=== PATIENT | female | born 1945 | race Hispanic/Latino ===

== ENCOUNTER → 2025-06-26 | Outpatient (CLI) | payer OTHER ==
[2025-06-26] MEDS: REGADENOSON 0.4 MG/5 ML PF SYG IVP ONE (10:59)
--- NOTE | 2025-06-26 14:46 | HMCSR ---
APPROVED REPORT Height: 4 ft 8in Weight: 168 lbs TEST INDICATIONS CAD The imaging protocol used to acquire images was Rest Tc-99m/stress Tc-99m 1 day Consent: The procedure was explained and understood by the patient. Informerd consent was witnessed Linh Reynolds RN First, low dose rest was performed then high dose stress. RESTING DATA: The resting ekg shows: NSR Rest SPECT myocardial perfusion imaging was performed in supine position minutes following the intra venous injection of mCi of Tc-99 Sestamibi. Time of rest injection: 09:12: Date: 06/26/2025 PHARMACOLOGIC STRESS: Pharmacologic stress test was performed by injecting regadenoson 0.4 mg IV push followed by the intra venous injection of mCi of Tc-99 Sestamibi. Time of stress injection: 10:55: Date: 06/26/2025 Heart Rate at time of stress injection: 74 bpm. Gated Stress SPECT was performed 60 minutes after stress injection. The images were gated to evaluate regional wall motion and calculate left ventricular ejection fracti on. STRESS DETAILS Reason for Termination: Infusion complete Stress Symptoms: STOMACH PRESSURE Max HR Achieved: 75 bpm % of APMHR Achieved: 61 Max Blood Pressure: 141/46 mmHg Stress ECG: NSR LEFT VENTRICLE Size: The left ventricular size is normal. Systolic Function:The left ventricular systolic function is normal. Wall Motion: No regional wall motion abnormalities noted. The left ventricular ejection fraction was calculated to be 76%.TID = . LV PERFUSION Subtle, fixed apical and septal thinning. No reversible defects. Conclusion The left ventricular size is normal. The left ventricular systolic function is normal. No regional wall motion abnormalities noted. Subtle, fixed apical and septal thinning. No reversible defects. The left ventricular ejection fraction was calculated to be 76%.
== END | disposition home or self-care (01) ==
LOC: RAH 08:26
PROVIDERS: ATTEND Internal Medicine Cardiovascular Disease
DX: I25.10 Atherosclerotic heart disease of native coronary artery without angina pectoris (principal)
CPT/HCPCS: 78452; 93017; J2785; A9500 ×2

== ENCOUNTER 2025-08-02 05:49 | Day surgery (SDC) | payer OTHER ==
[2025-07-31 13:17] VITALS: BP 140/57; PULSE 57; RESP 18; TEMP 97.4
[2025-07-31 13:29] LABS: IMMATURE GRANULOCYTE ABSOLUTE 0.02 K/uL (0-1); NUCLEATED RED BLOOD CELLS 0.0 % (0.0-0.19); PLATELET COUNT (AUTO) 145 K/uL (130-400); RED BLOOD CELL COUNT(AUTO) 3.91 MIL/uL (4.00-5.50); RED CELL DISTRIBUTION WIDTH 13.6 % (11.0-15.5); WHITE BLOOD COUNT (AUTO) 7.5 K/uL (4.8-10.8)
[2025-07-31 13:38] LABS: CREATININE 1.1 mg/dL (0.5-1.0); GLOMERULAR FILTR. RATE CALC 52.0 mL/min (>90); GLUCOSE,RANDOM 95.0 mg/dL (70-105); SODIUM SERUM 142.0 mmol/L (136-145); UREA NITROGEN, BLOOD 23.0 mg/dL (7-18)
[2025-07-31 13:57] LABS: INR 1.0 (0.85-1.15)
--- NOTE | 2025-07-31 14:02 | EKG ---
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
[2025-08-02] VITALS (11 sets, daily range): BP systolic 131–158; BP diastolic 47–69; PULSE 50–71; RESP 11–19; TEMP 96.8–98.3
[~2025-08-02] VITALS: Ht 144.8 cm; Wt 72.4 kg
[~2025-08-02 05:49] MED LIST: ACET250T28 PO; CALC1CAP19 PO; CHOL500045 PO; FERS325 PO; FLUT16H NASAL; MONT-39 PO; OLME20TA68 PO; SIMV-46 PO; TERA2CAP4 PO
[2025-08-02] MEDS: 0.9%NACL 1000ML 1,000 ML IV SCH (06:32)
[2025-08-02] MEDS ORDERED: LIDOCAINE HCL 1% MDV 50ML VIAL ONE (07:16)
[2025-08-02] MEDS ORDERED: MIDAZOLAM HCL 1 MG/ML 2ML VIAL ONE ×3 (07:17→08:42)
[2025-08-02] MEDS ORDERED: IODIXANOL 320 MG/ML 100 ML VIAL ONE (07:33)
--- NOTE | 2025-08-02 09:45 | NUR ---
DRESSING: PRESSURE DRESSING TO LEFT UPPER CHEST DRY/INTACT. ICE BAG APPLIED ORDERED. LEFT ARM IN PLACE TO SLING.
--- NOTE | 2025-08-02 10:00 | NUR ---
DRESSING: PRESSURE DRESSING TO LEFT UPPER CHEST REMAINS DRY/INTACT WITH ICE BAG IN PLACE. LEFT ARM IN PLACE TO ARM SLING.
--- NOTE | 2025-08-02 10:15 | NUR ---
DRESSING: DRESSING TO LEFT UPPER CHEST REMAINS DRY/INTACT WITH ICE BAG IN PLACE. LEFT ARM IN PLACE TO ARM SLING.
--- NOTE | 2025-08-02 10:30 | NUR ---
DRESSING: DRESSING TO LEFT UPPER CHEST REMAINS DRY/INTACT WITH ICE BAG IN PLACE. LEFT ARM IN PLACE TO ARM SLING.
--- NOTE | 2025-08-02 11:00 | NUR ---
URINARY: VOIDED 300 CC CLEAR YELLOW COLOR URINE IN BEDPAN WITHOUT DIFFICULTY.
--- NOTE | 2025-08-02 11:30 | NUR ---
dressing: dressing left upper chest dry/intact with ice bag in place. left arm in place to arm sling.
--- NOTE | 2025-08-02 12:30 | NUR ---
dressing: pressure dressing to left upper chest remains dry/intact with ice bag in place. left arm in place to arm sling.
--- NOTE | 2025-08-02 13:15 | NUR ---
URINARY: VOIDED 300 CC CLEAR YELLOW COLOR URINE PER BEDPAN WITHOUT DIFFICULTY
--- NOTE | 2025-08-02 13:30 | NUR ---
dressing: pressure dressing to left upper chest dry/intact . left arm in place to arm sling.
--- NOTE | 2025-08-02 14:03 | HMCIMG ---
CHEST 1VW REASON: s/p ppm insertion COMPARISON: None. FINDINGS: Single view of the chest was obtained. Lungs are clear. Heart size is normal. There is a left-sided pacemaker with lead in right atrium and right ventricle. There is no pulmonary vascular congestion. Mediastinum and bony thorax appear unremarkable. IMPRESSION: 1. Normal single view chest x-ray.
--- NOTE | 2025-08-02 14:20 | NUR ---
report: hand-off communication given to eileen silva rn
--- NOTE | 2025-08-02 15:11 | NUR ---
CALLED for; to (do) [facility] IF HE WOULD BE COMING TO INSTRUCT PT AND FAMILY ON NEW IMPLANTED PACEMAKER STATES PT WILL BE RECEIVING MORE INFORMATION AND MONITOR ON FOLLOW UP APPT SO PLEASE ADVISE PT NOT TO MISS F/U APPT
--- NOTE | 2025-08-02 15:15 | NUR ---
CHEST XRAY CLEAR , LEFT CHEST PRESSURE DRESSING REMOVED NO ACTIVE BLEEDING UNDER DRESSING DRY INTACT SLIGHT BRUISE NOTED TO 5 OCLOCK AREA , SLING INPLACE TOLERATED WELL RADIAL PULSE PRESENTPAIN MOTOR SENSATION CR WNL
== END 2025-08-02 15:46 | disposition home or self-care (01) ==
LOC: DAH 05:49
PROVIDERS: ATTEND Internal Medicine Cardiovascular Disease
DX: I49.5 Sick sinus syndrome (principal); R00.1 Bradycardia, unspecified; I47.10 Supraventricular tachycardia, unspecified; I48.91 Unspecified atrial fibrillation; I10 Essential (primary) hypertension; I25.10 Atherosclerotic heart disease of native coronary artery without angina pectoris; E78.5 Hyperlipidemia, unspecified; Z90.710 Acquired absence of both cervix and uterus; Z90.49 Acquired absence of other specified parts of digestive tract; Z98.51 Tubal ligation status; Z79.01 Long term (current) use of anticoagulants; Z79.899 Other long term (current) drug therapy
CPT/HCPCS: 80048; 85025; 85610; 85730; 36415; 93005; 33208; 99156; 99157 ×6; 71045; C1898 ×2; C1769; C1785; J3010; J0690 ×2; J0665; J2250 ×3; J2704; J3490; Q9967; J0282; A4215; A4335; A4222; A4221; A4663; A4216; A4606; A4223 ×3; A4554